=== PATIENT | female | born 1980 | race Caucasian/White ===

== ENCOUNTER 2016-07-02 22:20 | Emergency (ER) | END 2016-07-03 03:54 | disposition home or self-care (01) | DX: N12 Tubulo-interstitial nephritis, not specified as acute or chronic (principal); R11.10 Vomiting, unspecified | CPT/HCPCS: 74176; 80053; 81001; 81003; 83690; 85025; J0696; Z7610 ==

== ENCOUNTER 2016-09-25 10:46 | Emergency (ER) | payer OTHER ==
[~2016-09-25] VITALS: Ht 157.5 cm; Wt 64.5 kg
[~2016-09-25 10:46] MED LIST: AUG875 PO; CIPR500T4 PO; HYDR-3498 PO; HYDR-906 PO; IBUP-1542 PO; ONDA4TAB14 PO; ONDA4TAB35 PO; PHEN-538 PO; PSEU120T11 PO
[2016-09-25 11:01] VITALS: Ht 157.5 cm; Wt 64.5 kg
--- NOTE | 2016-09-25 13:09 | ERA ---
ER Documentation Chief Complaint Date/Time DATE: 09/25/16 TIME: 13:08 Chief Complaint EPIGASTRIC PAIN,NAUSEA AND VOMITING HPI Patient is a 35-year-old female who presents with 2 weeks of abdominal pain. Patient has not taken any medication to make symptoms better. Patient describes the abdominal pain as general and more predominant in the lower abdomen/pelvis area. Patient denies sexual activity. Patient has been vomiting for the past 3-4 days. Patient denies diarrhea, constipation, dysuria , hematuria, headache, stiff neck, anorexia, nasal congestion or fever. ROS All systems reviewed and are negative except as per history of present illness. Medications Home Meds Active Scripts Ondansetron (Ondansetron Odt) 4 Mg Tab.rapdis, 4 MG PO Q6H Y for NAUSEA AND/OR VOMITING, #10 TAB Prov:YAMILET SHEPHERD PA-C 09/25/16 Phenazopyridine Hcl* (Pyridium*) 200 Mg Tab, 200 MG PO TID Y for URINARY PAIN, # 6 TAB Prov:DRISS QUINTANA NP 07/03/16 Ondansetron (Ondansetron Odt) 4 Mg Tab.rapdis, 4 MG PO Q8 Y for NAUSEA AND/OR VOMITING, #30 TAB Prov:DRISS QUINTANA NP 07/03/16 Hydrocodone/Acetaminophen ([place] 5-325 Tablet) 1 Each Tablet, 1 TAB PO Q6H Y for PAIN, #20 TAB Prov:DRISS QUINTANA NP 07/03/16 Ciprofloxacin Hcl* (Ciprofloxacin Hcl*) 500 Mg Tablet, 500 MG PO BID for 10 Days , TAB Prov:DRISS QUINTANA NP 07/03/16 Ibuprofen* (Motrin*) 600 Mg Tab, 600 MG PO Q6, #30 TAB Prov:LIANNE PERDOMO PA-C 01/11/16 Ondansetron Hcl* (Zofran* ODT) 4 mg -ODT Tab.disper, 4 MG PO Q8 Y for NAUSEA AND /OR VOMITING, #30 TAB Prov:DRISS QUINTANA NP 11/20/15 Hydrocodone Bit-Acetaminophen* ([place]*) 5-325 Mg Tab, 1 TAB PO Q6 Y for PAIN, # 20 TAB Prov:DRISS QUINTANA NP 11/20/15 Pseudoephedrine Hcl (Sudafe 12-Hour) 120 Mg Tablet.er, 120 MG PO BID Y for CONGESTION for 3 Days, TAB.SA Prov:LIANNE PERDOMO PA-C 07/18/15 Amoxicillin-Clavulanate K* (Augmentin*) 875 Mg Tab, 875 MG PO BID for 7 Days, TAB Prov:LIANNE PERDOMO PA-C 07/18/15 Reported Medications [none] Unknown Strength No Conflict Check 11/20/15 Allergies Allergies: Coded Allergies: No Known Drug Allergies (Verified Allergy, Mild, 07/03/16) PMhx/Soc History of Surgery: Yes (C SECTION w/ tubal ligation) Anesthesia Reaction: No Hx Neurological Disorder: No Hx Respiratory Disorders: No Hx Cardiac Disorders: No Hx Psychiatric Problems: No Hx Miscellaneous Medical Probl: No Hx Alcohol Use: Yes (OCCASSIONAL) Hx Substance Use: No Hx Tobacco Use: No Smoking Status: Never smoker Physical Exam Vitals Vital Signs Date Time Temp Pulse Resp B/P Pulse Ox O2 Delivery O2 Flow Rate FiO2 09/25/16 11:01 98.3 69 18 112/70 98 Physical Exam Const: Well-appearing overweight 35-year-old female Head: Atraumatic Eyes: Normal Conjunctiva ENT: Normal External Ears, Nose and Mouth. Neck: Full range of motion..~ No meningismus. Resp: Clear to auscultation bilaterally Cardio: Regular rate and rhythm, no murmurs Abd: Soft, non tender, non distended. Normal bowel sounds. No suprapubic tenderness. Skin: No petechiae or rashes Back: No midline or flank tenderness Ext: No cyanosis, or edema Neur: Awake and alert Psych: Normal Mood and Affect Results 24 hrs Laboratory Tests Test 09/25/16 13:44 Bedside Urine pH (LAB) 5.5 Bedside Urine Protein (LAB) Negative Bedside Urine Glucose (UA) Negative Bedside Urine Ketones (LAB) Negative Bedside Urine Blood 3+ Bedside Urine Nitrite (LAB) Negative Bedside Urine Leukocyte Esterase (L Negative Procedures/MDM Patient is a 35-year-old female complaining of generalized abdominal pain for the past 2 weeks and vomiting for the past 3 days with pain being more predominant in the lower abdomen/pelvic region. Patient denies fever, constipation or diarrhea. At this time we will go ahead and get a in the urine to make sure there is urinary tract infection or . Patient is able to tolerate p.o. Patient's urinalysis was unremarkable and test was negative. We will go ahead and discharge the patient with a prescription for Zofran to control the nausea vomiting and return precautions. Have instructed the patient has symptoms persist to return to the emergency department immediately. Otherwise patient should follow-up with primary care provider in the next 1-3 days. Departure Diagnosis: Primary Impression: Gastroenteritis Additional Impressions: Stomach ache Vomiting Qualified Code: R11.2 - Nausea and vomiting, intractability of vomiting not specified, unspecified vomiting type Condition: Serious Additional Instructions: Follow up with your PCP within the next 1-3 days for a more thorough evaluation and a possible referral to a specialist. Return the the emergency department immediately if symptoms worsen or change. If you have any questions regarding medications, ask your pharmacist or us before you leave. If any adverse reactions occur while taking your medications, discontinue the treatment and return to the emergency department immediately. Take your medications as directed, and complete the entire course of treatment. YAMILET SHEPHERD PA-C Sep 25, 2016 13:09
[2016-09-25 13:43] LABS: URINE BLOOD (Dip) POC 3+ (NEGATIVE)
[2016-09-25] MEDS ORDERED: ONDA4TAB14 PO (13:49)
[2016-09-25 14:10] VITALS: BP 109/75; PULSE 66; RESP 18; TEMP 98.5
== END 2016-09-25 14:12 | disposition home or self-care (01) ==
LOC: FTE 10:46
DX: K52.9 Noninfective gastroenteritis and colitis, unspecified (principal); R11.2 Nausea with vomiting, unspecified
CPT/HCPCS: 81003; 99283

== ENCOUNTER 2016-10-01 22:52 | Emergency (ER) | payer OTHER ==
[~2016-10-01] VITALS: Ht 162.6 cm; Wt 65.0 kg
[2016-10-01 22:55] VITALS: Ht 162.6 cm; Wt 65.0 kg
[2016-10-02] MEDS ORDERED: morphine 4 MG/ML VIAL IV STA (01:33)
[2016-10-02] MEDS ORDERED: ONDANSETRON 4 MG INJ IV STA (01:33)
[2016-10-02 01:54] LABS: ADD SCAN DIFF NO
[2016-10-02 02:03] LABS: BASOPHILS % 0.4 % (0.0-2.0); EOSINOPHILS # 0.1 10^3/ul (0.0-0.5); EOSINOPHILS % 0.9 % (0.0-7.0); HEMATOCRIT 39.9 % (37.0-47.0); HEMOGLOBIN 13.5 g/dl (12.0-16.0); LYMPHOCYTES # 3.7 10^3/ul (0.8-2.9); LYMPHOCYTES % 48.3 % (15.0-51.0); MEAN CORPUSCULAR HEMOGLOBIN 29.6 pg (29.0-33.0); MEAN CORPUSCULAR HGB CONC 33.8 g/dl (32.0-37.0); MEAN CORPUSCULAR VOLUME 87.5 fl (82.0-101.0); MEAN PLATELET VOLUME 12.1 fl (7.4-10.4); MONOCYTE # 0.5 10^3/ul (0.3-0.9); MONOCYTES % 7.1 % (0.0-11.0); NEUTROPHIL # 3.3 10^3/ul (1.6-7.5); PLATELET COUNT 224 10^3/UL (140-415); RED BLOOD COUNT 4.56 10^6/ul (4.20-5.40); RED CELL DISTRIBUTION WIDTH 13.2 % (11.5-14.5); WHITE BLOOD COUNT 7.6 10^3/ul (4.8-10.8)
[2016-10-02 02:05] LABS: ALBUMIN 4.9 g/dl (3.3-4.9)
[2016-10-02 02:07] LABS: CREATININE 0.71 mg/dl (0.44-1.00)
[2016-10-02 02:08] LABS: ALBUMIN/GLOBULIN RATIO 1.22; BILIRUBIN,INDIRECT 0.3 mg/dl (0-1.1); BILIRUBIN,TOTAL 0.3 mg/dl (0.2-1.3); TOTAL PROTEIN 8.9 g/dl (6.1-8.1)
[2016-10-02 02:09] LABS: CALCIUM 9.9 mg/dl (8.4-10.2)
[2016-10-02 02:25] LABS: ADD UMIC NO; URINE BILIRUBIN (Dip) NEGATIVE (NEGATIVE); URINE BLOOD (Dip) NEGATIVE (NEGATIVE); URINE COLOR LT. YELLOW (YELLOW); URINE GLUCOSE (Dip) NEGATIVE (NEGATIVE); URINE KETONES (Dip) 40 (NEGATIVE); URINE LEUKOCYTE ESTERASE (Dip) NEGATIVE (NEGATIVE); URINE NITRITE (Dip) NEGATIVE (NEGATIVE); URINE TOTAL PROTEIN (Dip) NEGATIVE (NEGATIVE); URINE UROBILINOGEN (Dip) 0.2 E.U./dL (0.1-1.0)
--- NOTE | 2016-10-02 02:54 | RADRPT ---
PROCEDURE: US pelvis complete and transvaginal CLINICAL INDICATION: Pelvic pain TECHNIQUE: Avalos scale and color Doppler imaging of the pelvis was performed. Endovaginal scanning was performed for more detailed evaluation of the endometrium. The images were reviewed on a PACS workstation. COMPARISON: CT from 07/03/2016 and ultrasound from 01/11/2016 FINDINGS: The uterus measures 7.4 x 4.2 x 5.2 centimeters. The right ovary measures 3.7 x 2.7 x 2.4 centimete rs and the left ovary measures 2.8 x 1.4 x 1.9 centimeters. The endometrial stripe measures 6 catrachita meters in thickness and is unremarkable in appearance. The uterus is slightly heterogeneous in echot exture and slightly globular in contour. This may reflect small fibroid or possibly adenomyosis. 2. 3 cm simple - appearing right ovarian cyst is seen. The left ovary is unremarkable appearance. Cj ss collar and arterial Doppler flow both ovaries was documented. No free fluid is seen. IMPRESSION: 2.3 cm simple appearing right ovarian cyst. Slightly heterogeneous myometrium with slight globular contour of the fundus. This may be incidental or could be due to small fibroids or adenomyosis. RPTAT: HLBE Physician Elizabeth Date Time Electronically viewed and signed by Physician Elizabeth on 10/02/2016 02:53 LE/
[2016-10-02 03:14] LABS: POTASSIUM 2.9 mmol/L (3.5-5.1)
[2016-10-02] MEDS ORDERED: POTASSIUM CHLORIDE (SR) 20 MEQ TAB PO STA (03:27)
--- NOTE | 2016-10-02 03:37 | ERD ---
ER Documentation Chief Complaint Date/Time DATE: 10/02/16 TIME: 03:30 Chief Complaint LOWER MID AP X2 DAYS DENIES N/V DIARRHEA. HPI Otherwise healthy 35-year-old female presents to the emergency department complaining of 1 month history of lower abdominal pain and pelvic pain. Patient denies any vomiting, diarrhea but notes nausea. Patient currently rates her pain at an intermittent 7 out of 10 cramping lower abdominal and pelvic pain. Last menstrual period was 7 days ago and normal for her. Last bowel movement was today and normal for her. ROS All systems reviewed and are negative except as per history of present illness. Medications Home Meds Active Scripts Ondansetron (Ondansetron Odt) 4 Mg Tab.rapdis, 4 MG PO Q6H Y for NAUSEA AND/OR VOMITING, #10 TAB Prov:MERLIN ANAND PA-C 10/02/16 Ibuprofen* (Motrin*) 600 Mg Tab, 600 MG PO Q6, #30 TAB Prov:MERLIN ANAND PA-C 10/02/16 Hydrocodone/Acetaminophen ([place] 5-325 Tablet) 1 Each Tablet, 1 TAB PO Q6H Y for PAIN, #7 TAB Prov:MERLIN ANAND PA-C 10/02/16 Ondansetron (Ondansetron Odt) 4 Mg Tab.rapdis, 4 MG PO Q6H Y for NAUSEA AND/OR VOMITING, #10 TAB Prov:YAMILET SHEPHERD PA-C 09/25/16 Phenazopyridine Hcl* (Pyridium*) 200 Mg Tab, 200 MG PO TID Y for URINARY PAIN, # 6 TAB Prov:DRISS QUINTANA NP 07/03/16 Ondansetron (Ondansetron Odt) 4 Mg Tab.rapdis, 4 MG PO Q8 Y for NAUSEA AND/OR VOMITING, #30 TAB Prov:DRISS QUINTANA NP 07/03/16 Hydrocodone/Acetaminophen ([place] 5-325 Tablet) 1 Each Tablet, 1 TAB PO Q6H Y for PAIN, #20 TAB Prov:DRISS QUINTANA NP 07/03/16 Ciprofloxacin Hcl* (Ciprofloxacin Hcl*) 500 Mg Tablet, 500 MG PO BID for 10 Days , TAB Prov:DRISS QUINTANA NP 07/03/16 Ibuprofen* (Motrin*) 600 Mg Tab, 600 MG PO Q6, #30 TAB Prov:LIANNE PERDOMO PA-C 01/11/16 Ondansetron Hcl* (Zofran* ODT) 4 mg -ODT Tab.disper, 4 MG PO Q8 Y for NAUSEA AND /OR VOMITING, #30 TAB Prov:DRISS QUINTANA. MANAGER [employer]PORATE RESPONSIBILITY 11/20/15 Hydrocodone Bit-Acetaminophen* ([place]*) 5-325 Mg Tab, 1 TAB PO Q6 Y for PAIN, # 20 TAB Prov:DRISS QUINTANA T. MANAGER [employer]PORATE RESPONSIBILITY 11/20/15 Pseudoephedrine Hcl (Sudafe 12-Hour) 120 Mg Tablet.er, 120 MG PO BID Y for CONGESTION for 3 Days, TAB.SA Prov:LIANNE PERDOMO PA-C 07/18/15 Amoxicillin-Clavulanate K* (Augmentin*) 875 Mg Tab, 875 MG PO BID for 7 Days, TAB Prov:LIANNE PERDOMO PA-C 07/18/15 Reported Medications [none] Unknown Strength No Conflict Check 11/20/15 Allergies Allergies: Coded Allergies: No Known Drug Allergies (Verified Allergy, Mild, 10/01/16) PMhx/Soc Medical and Surgical Hx: pt denies Medical Hx History of Surgery: Yes (C SECTION w/ tubal ligation) Anesthesia Reaction: No Hx Neurological Disorder: No Hx Respiratory Disorders: No Hx Cardiac Disorders: No Hx Psychiatric Problems: No Hx Miscellaneous Medical Probl: No Hx Alcohol Use: Yes (OCCASSIONAL) Hx Substance Use: No Hx Tobacco Use: No Smoking Status: Never smoker Physical Exam Vitals Vital Signs Date Time Temp Pulse Resp B/P Pulse Ox O2 Delivery O2 Flow Rate FiO2 10/02/16 03:44 97.0 68 20 135/78 100 Room Air 10/01/16 22:55 97.0 74 20 121/73 99 Physical Exam Const: [] Head: Atraumatic Eyes: Normal Conjunctiva ENT: Normal External Ears, Nose and Mouth. Neck: Full range of motion..~ No meningismus. Resp: Clear to auscultation bilaterally Cardio: Regular rate and rhythm, no murmurs Abd: Soft, non tender, non distended. Normal bowel sounds Skin: No petechiae or rashes Back: No midline or flank tenderness Ext: No cyanosis, or edema Neur: Awake and alert Psych: Normal Mood and Affect Result Diagram: 10/02/1613410/02/16134 Results 24 hrs Laboratory Tests Test 10/02/16 01:35 White Blood Count 7.610^3/ul Red Blood Count 4.5610^6/ul Hemoglobin 13.5g/dl Hematocrit 39.9% Mean Corpuscular Volume 87.5fl Mean Corpuscular Hemoglobin 29.6pg Mean Corpuscular Hemoglobin Concent 33.8g/dl Red Cell Distribution Width 13.2% Platelet Count 81285^3/UL Mean Platelet Volume 12.1fl Neutrophils % 43.0% Lymphocytes % 48.3% Monocytes % 7.1% Eosinophils % 0.9% Basophils % 0.4% Nucleated Red Blood Cells % 0.0/100WBC Neutrophils # 3.310^3/ul Lymphocytes # 3.710^3/ul Monocytes # 0.510^3/ul Eosinophils # 0.110^3/ul Basophils # 0.010^3/ul Nucleated Red Blood Cells # 0.010^3/ul Urine Color LT. YELLOW Urine Clarity CLEAR Urine pH 6.0 Urine Specific [place] 1.010 Urine Ketones 40 Urine Nitrite NEGATIVE Urine Bilirubin NEGATIVE Urine Urobilinogen 0.2 E.U./dL Urine Leukocyte Esterase NEGATIVE Urine Hemoglobin NEGATIVE Urine Glucose NEGATIVE% Urine Total Protein NEGATIVE Sodium Level 144mmol/L Potassium Level 2.9mmol/L Chloride Level 106mmol/L Carbon Dioxide Level 21mmol/L Anion Gap 20 Blood Urea Nitrogen 10mg/dl Creatinine 0.71mg/dl Glucose Level 89mg/dl Calcium Level 9.9mg/dl Total Bilirubin 0.3mg/dl Direct Bilirubin 0.00mg/dl Indirect Bilirubin 0.3mg/dl Aspartate Amino Transf (AST/SGOT) 22IU/L Alanine Aminotransferase (ALT/SGPT) 29IU/L Alkaline Phosphatase 78IU/L Total Protein 8.9g/dl Albumin 4.9g/dl Globulin 4.00g/dl Albumin/Globulin Ratio 1.22 Lipase 72U/L Current Medications Medications (Trade) Dose Ordered Sig/Randolph Route PRN Reason Start Time Stop Time Status Last Admin Dose Admin Morphine Sulfate (morphine) 4 mg ONCE STAT IV 10/02/16 01:33 4/25/17 01:35 DC 10/02/16 02:11 Ondansetron HCl (Zofran Inj) 4 mg ONCE STAT IV 10/02/16 01:33 10/02/16 01:35 DC 10/02/16 02:09 Potassium Chloride (Klor-Con 20) 40 meq ONCE STAT PO 10/02/16 03:27 10/02/16 03:31 DC 10/02/16 03:36 Procedures/MDM This is a pleasant 35-year-old female who presents with intermittent lower abdominal cramping pain 1 month. Vital signs were reviewed. Patient was afebrile, non-tachycardic, non-hypoxic and normotensive upon arrival. Patient received 1 bolus of fluids as well as pain medication and reports improvement of symptoms. Patient was requesting to eat and drink while in the emergency department. Abdominal exam unremarkable for any severe tenderness to palpation or peritoneal signs. CBC showed no evidence of systemic infection or severe anemia. CMP showed evidence of hypokalemia. Patient was administered 40 mg p.o. potassium while in the emergency department. Otherwise no evidence of other electrolyte abnormalities, severe acidosis, alkalosis, renal failure, or liver disease. Lipase showed no evidence of acute pancreatitis. UA showed no evidence of acute infection or hematuria. Urine test was negative. Ultrasound revealed evidence of simple appearing right ovarian cyst. History and physical consistent with hypokalemia and ovarian cyst. At this time I have low suspicion for acute ectopic , tubo-ovarian abscess, ovarian torsion, bowel obstruction. Based on patient's history of present illness and physical examination the decision was made to discharge. The patient was re-evaluated after ED treatment and stabilizing measures, and symptoms have improved. There is no evidence of life threatening injuries or illnesses at this time. On re-examination, patient resting in no distress, stable vital signs, reports feeling better and safe for discharge with outpatient follow up with PMD in 1-2 days. Patient given return precautions. Departure Diagnosis: Primary Impression: Abdominal pain Abdominal location: lower abdomen, unspecified Qualified Code: R10.30 - Lower abdominal pain Additional Impressions: Ovarian cyst Laterality: right Qualified Code: N83.201 - Cyst of right ovary Hypokalemia MERLIN ANAND PA-C Oct 02, 2016 03:37
[2016-10-02 03:44] VITALS: BP 135/78; PULSE 68; RESP 20; TEMP 97
[2016-10-02] MEDS ORDERED: IBUP-1542 PO (03:57)
[2016-10-02] MEDS ORDERED: HYDR-906 PO (03:57)
[2016-10-02] MEDS ORDERED: ONDA4TAB14 PO (03:57)
== END 2016-10-02 04:03 | disposition home or self-care (01) ==
LOC: FTE 22:52
DX: R10.30 Lower abdominal pain, unspecified (principal); N83.201 Unspecified ovarian cyst, right side; E87.6 Hypokalemia; R11.0 Nausea; R10.2 Pelvic and perineal pain
CPT/HCPCS: 36415; 76830; 76856; 80053; 81003; 83690; 85025; 96374; 96375; J2270; J2405; Z7502; Z7610

== ENCOUNTER 2016-11-21 09:33 | Emergency (ER) | payer OTHER ==
[~2016-11-21] VITALS: Ht 162.6 cm; Wt 62.5 kg
[2016-11-21 09:45] VITALS: Ht 162.6 cm; Wt 62.5 kg
[2016-11-21] MEDS ORDERED: ACETAMINOPHEN 325 MG TAB PO STA (10:33)
[2016-11-21 10:40] LABS: URINE BLOOD (Dip) POC Negative (NEGATIVE)
--- NOTE | 2016-11-21 12:09 | RADRPT ---
PROCEDURE: US Pelvis CLINICAL INDICATION: Pelvic pain. TECHNIQUE: Sonographic evaluation of the pelvis was performed utilizing both transabdominal and tr ansvaginal technique. Curved array transabdominal transducer technique as well as a high frequency endovaginal probe was utilized. Images were reviewed on the high-resolution PACS workstation. COMPARISON: Ultrasound dated 10/02/2016 FINDINGS: The uterus is normal in size, echogenicity, and morphology measuring 8.4 x 3.8 x 5.6 cm in dimension . The uterus is anteverted in normal position. The endometrium is thin and homogeneous measuring 4.4 mm in diameter. The normal trilaminar stripe of the endometrium is preserved. The right ovary measures 2.5 x 1.4 x 1.4 cm in dimension. The left ovary measures 2.8 x 1.8 x 2.3 c m in dimension. The ovaries are symmetric in size, echogenicity, and morphology. Normal Doppler fl ow is demonstrated to both ovaries. There are no adnexal masses. There is no significant free flui d in the pelvis. IMPRESSION: Unremarkable ultrasound of the pelvis. RPTAT: .Virginia Worthington MD, Date Time Electronically viewed and signed by .Virginia Worthington MD, on 11/21/2016 12:09 .[place]/
[2016-11-21] MEDS ORDERED: NAPR-260 PO (12:34)
[2016-11-21] MEDS ORDERED: CYCL-319 PO (12:34)
--- NOTE | 2016-11-21 12:59 | ERD ---
ER Documentation Chief Complaint Date/Time DATE: 11/21/16 TIME: 12:56 Chief Complaint back and pelvic pain x 5 days; nausea HPI This is a 35-year-old female presenting to the emergency department with multiple complaints. Patient complains of lower neck and lumbar back pain for the past 5 days. She states the pain is around moderate in severity increased with movement. In addition patient also complains of pelvic pain, rating it mild to moderate in severity. She denies any trauma, saddle anesthesia, bladder or bowel incontinence. She denies fever, painful or frequent urination , hematuria. Patient admits to having nausea. She denies any vomiting, diarrhea or constipation. She states that her last menstrual period was about a week ago. She denies taking any medications for this ROS All systems reviewed and are negative except as per history of present illness. Medications Home Meds Active Scripts Cyclobenzaprine Hcl* (Cyclobenzaprine Hcl*) 10 Mg Tablet, 10 MG PO TID, #30 TAB Prov:BENY CALDERON PA-C 11/21/16 Naproxen* (Naprosyn*) 500 Mg Tablet, 500 MG PO BID Y for PAIN AND/OR INFLAMMATION, #30 TAB Prov:BENY CALDERON PA-C 11/21/16 Ondansetron (Ondansetron Odt) 4 Mg Tab.rapdis, 4 MG PO Q6H Y for NAUSEA AND/OR VOMITING, #10 TAB Prov:MERLIN ANAND PA-C 10/02/16 Ibuprofen* (Motrin*) 600 Mg Tab, 600 MG PO Q6, #30 TAB Prov:MERLIN ANAND PA-C 10/02/16 Hydrocodone/Acetaminophen ([place] 5-325 Tablet) 1 Each Tablet, 1 TAB PO Q6H Y for PAIN, #7 TAB Prov:MERLIN ANAND PA-C 10/02/16 Ondansetron (Ondansetron Odt) 4 Mg Tab.rapdis, 4 MG PO Q6H Y for NAUSEA AND/OR VOMITING, #10 TAB Prov:YAMILET SHEPHERD PA-C 09/25/16 Phenazopyridine Hcl* (Pyridium*) 200 Mg Tab, 200 MG PO TID Y for URINARY PAIN, # 6 TAB Prov:DRISS QUINTANA NP 07/03/16 Ondansetron (Ondansetron Odt) 4 Mg Tab.rapdis, 4 MG PO Q8 Y for NAUSEA AND/OR VOMITING, #30 TAB Prov:DRISS QUINTANA NP 07/03/16 Hydrocodone/Acetaminophen ([place] 5-325 Tablet) 1 Each Tablet, 1 TAB PO Q6H Y for PAIN, #20 TAB Prov:DRISS QUINTANA NP 07/03/16 Ciprofloxacin Hcl* (Ciprofloxacin Hcl*) 500 Mg Tablet, 500 MG PO BID for 10 Days , TAB Prov:DRISS QUINTANA SELF PAY SPECIALIST 07/03/16 Ibuprofen* (Motrin*) 600 Mg Tab, 600 MG PO Q6, #30 TAB Prov:LIANNE PERDOMO PA-C 01/11/16 Ondansetron Hcl* (Zofran* ODT) 4 mg -ODT Tab.disper, 4 MG PO Q8 Y for NAUSEA AND /OR VOMITING, #30 TAB Prov:DRISS QUINTANA NP 11/20/15 Hydrocodone Bit-Acetaminophen* ([place]*) 5-325 Mg Tab, 1 TAB PO Q6 Y for PAIN, # 20 TAB Prov:DRISS QUINTANA NP 11/20/15 Pseudoephedrine Hcl (Sudafe 12-Hour) 120 Mg Tablet.er, 120 MG PO BID Y for CONGESTION for 3 Days, TAB.SA Prov:LIANNE PERDOMO PA-C 07/18/15 Amoxicillin-Clavulanate K* (Augmentin*) 875 Mg Tab, 875 MG PO BID for 7 Days, TAB Prov:LIANNE PERDOMO PA-C 07/18/15 Reported Medications [none] Unknown Strength No Conflict Check 11/20/15 Allergies Allergies: Coded Allergies: No Known Drug Allergies (Verified Allergy, Mild, 11/21/16) PMhx/Soc History of Surgery: Yes (C SECTION w/ tubal ligation) Anesthesia Reaction: No Hx Neurological Disorder: No Hx Respiratory Disorders: No Hx Cardiac Disorders: No Hx Psychiatric Problems: No Hx Miscellaneous Medical Probl: No Hx Alcohol Use: Yes (OCCASSIONAL) Hx Substance Use: No Hx Tobacco Use: No Smoking Status: Never smoker Physical Exam Vitals Vital Signs Date Time Temp Pulse Resp B/P Pulse Ox O2 Delivery O2 Flow Rate FiO2 11/21/16 09:45 72 18 112/72 100 Physical Exam GENERAL: well-developed/well-nourished, in no apparent distress, non-toxic appearing HENT: NC/AT, moist mucous membranes EYES: Conjunctiva normal NECK: Supple, no lymphadenopathy, tender palpation of trapezius muscles bilaterally PULM: CTA bilaterally, no rales, rhonchi, or wheezing heard CV: Normal S1S2, RRR, good capillary refill GI: Soft, non-distended, tender to palpation suprapubic region Normal bowel sounds, no masses or organomegaly felt on exam No gross peritonitis, no bruits Negative Rovsing, negative Restrepo, negative McBurney's point, Negative CVAT BACK: No masses. No deformities. Nontender part patent spine midline, tender palpation in the thoracic and lumbar region. EXT: No clubbing, cyanosis, or edema NEURO: Alert and Orientated SKIN: Intact, normal turgor PSYCH: Normal mood and mentation Results 24 hrs Laboratory Tests Test 11/21/16 10:43 Bedside Urine pH (LAB) 6.0 Bedside Urine Protein (LAB) 1+ Bedside Urine Glucose (UA) Negative Bedside Urine Ketones (LAB) Negative Bedside Urine Blood Negative Bedside Urine Nitrite (LAB) Negative Bedside Urine Leukocyte Esterase (L Negative Current Medications Medications (Trade) Dose Ordered Sig/Randolph Route PRN Reason Start Time Stop Time Status Last Admin Dose Admin Acetaminophen (Tylenol Tab) 650 mg ONCE STAT PO 11/21/16 10:33 11/21/16 10:35 DC 11/21/16 10:37 Procedures/MDM This is a 35-year-old female presenting to the emergency department complaining of neck, back and pelvic pain for the past 5 days. On examination, patient appears well she has stable vital signs. Patient had mild tenderness to palpation in the pelvic region, she was nontender to palpate in the spine midline. Appears that patient's pain is likely musculoskeletal. There was no evidence of urinary tract infection, pyelonephritis, nephrolithiasis, ovarian torsion or rupture, or other acute abdominal or cardiopulmonary conditions. In the ED patient was given Tylenol and Zofran, I have reassessed her and she states that she feels better. A urinalysis was done did not show any evidence of a urinary tract infection or hemoglobin. Urine test is negative. A pelvic ultrasound was done and the radiologist it was unremarkable. There was no evidence of ovarian torsion or ruptured cyst. I have discussed the patient to follow-up with her primary care physician for further evaluation and management. She stable for discharge for home. She understands and agrees with this plan and knows to return to the ER for any worsening sinus symptoms. Prescriptions given ibuprofen Departure Diagnosis: Primary Impression: Back pain Additional Impression: Pelvic pain Condition: Stable Patient Instructions: Back Pain (Acute Or Chronic), Pelvic Pain, Unknown Cause Additional Instructions: FOLLOW UP WITH YOUR PRIMARY CARE PHYSICIAN TOMORROW.Return to this facility if you are not improving as expected. Take all medicines as directed. Return to this facility if you are not improving as expected. Visite a frederick bettina trejo para un EXAMEN.Regrese a estas instalaciones si no se mejora denisse esperbamos o denisse le dijimos. [place] toda la medicina pal y denisse se le indic. Regrese a estas instalaciones si no se mejora denisse esperbamos o denisse le dijimos. Thank you for for coming to [facility] for your care today. Please ask your nurse or provider if you have questions about your care today and do not leave until all your questions have been answered. Please use any medications given as directed and follow-up with your doctor (or the doctor you were referred to) in the next 2-3 days. If you do not have a primary care doctor you may follow up at the [facility] (listed below). You may also use motrin and tylenol as needed for fever and/or pain unless instructed otherwise by your provider or nurse. Indications for more urgent follow-up have been discussed, but you may return to the Emergency Department at ANY time for any worrisome or worsening symptoms. La medicina que se le recet puede causarle sueo.NO DEBE MANEJAR NI OPERAR MAQUINARIAS PELIGROSAS mientras esta tomando esta medicina! BENY CALDERON PA-C Nov 21, 2016 12:59
== END 2016-11-21 12:45 | disposition home or self-care (01) ==
LOC: FTE 09:33
DX: M54.9 Dorsalgia, unspecified (principal); R10.2 Pelvic and perineal pain
CPT/HCPCS: 76830; 76856; 81003; Z7502; Z7610

== ENCOUNTER 2017-01-17 09:48 | Emergency (ER) | payer OTHER ==
[~2017-01-17] VITALS: Wt 63.0 kg
[~2017-01-17 09:48] MED LIST changes: +CYCL-319 PO; +NAPR-260 PO
[2017-01-17] MEDS ORDERED: KETOROLAC 60 MG INJ IM STA (10:26)
[2017-01-17 10:38] LABS: URINE BLOOD (Dip) POC Negative (NEGATIVE)
--- NOTE | 2017-01-17 11:17 | RADRPT ---
PROCEDURE: XR Lumbar Spine 2 Views. CLINICAL INDICATION: Low back pain. TECHNIQUE: Lumbar spine study including AP and lateral views was performed. COMPARISON: No prior studies are available for comparison. FINDINGS: Lumbar spine demonstrates a normal lordosis. No fractures or destructive bony lesions are observed. Mild intervertebral disk space narrowing is identified at L4-5. The facet joints are grossly unre markable. Soft tissues surrounding the spine appear normal. IMPRESSION: Mild degenerative disk disease at L4-5. If further characterization is needed CT or MRI could be helpful. If there is high clinical suspicion for traumatic injury, further evaluation with CT should be consi dered. RPTAT: AA .Martinez Carpio MD, MD Date Time Electronically viewed and signed by .Martinez Carpio MD, on 01/17/2017 11:17 .P/
[2017-01-17] MEDS ORDERED: IBUP-1542 PO (11:40)
--- NOTE | 2017-01-17 13:02 | ERD ---
ER Documentation Chief Complaint Date/Time DATE: 01/17/17 TIME: 13:00 Chief Complaint LOW BACK PAIN, SEEN HERE BEFORE WITH SAME S/S, DENIES INJURY HPI 36-year-old female patient with no significant past medical history presents to the ED complaining of lumbar pain that radiates to her right lower leg. Describes pain as achy and rates it a 10 out of 10. Reports that it is better when she is sitting. Reports that it is worse when she moves. Denies any flank pain, dysuria, urgency, saddle anesthesia, urine or bowel incontinences, urinary retention, frequency, hematuria. Reports that she did do some heavy lifting, 4 months ago and this exacerbated her pain. ROS All systems reviewed and are negative except as per history of present illness. Medications Home Meds Active Scripts Ibuprofen* (Motrin*) 600 Mg Tab, 600 MG PO Q6, #30 TAB Prov:DAYANARA BHARDWAJ PA-C 01/17/17 Cyclobenzaprine Hcl* (Cyclobenzaprine Hcl*) 10 Mg Tablet, 10 MG PO TID, #30 TAB Prov:BENY CALDERON PA-C 11/21/16 Naproxen* (Naprosyn*) 500 Mg Tablet, 500 MG PO BID Y for PAIN AND/OR INFLAMMATION, #30 TAB Prov:BENY CALDERON PA-C 11/21/16 Ondansetron (Ondansetron Odt) 4 Mg Tab.rapdis, 4 MG PO Q6H Y for NAUSEA AND/OR VOMITING, #10 TAB Prov:MERLIN ANAND PA-C 10/02/16 Ibuprofen* (Motrin*) 600 Mg Tab, 600 MG PO Q6, #30 TAB Prov:MERLIN ANAND PA-C 10/02/16 Hydrocodone/Acetaminophen ([place] 5-325 Tablet) 1 Each Tablet, 1 TAB PO Q6H Y for PAIN, #7 TAB Prov:MERLIN ANAND PA-C 10/02/16 Ondansetron (Ondansetron Odt) 4 Mg Tab.rapdis, 4 MG PO Q6H Y for NAUSEA AND/OR VOMITING, #10 TAB Prov:YAMILET SHEPHERD PA-C 09/25/16 Phenazopyridine Hcl* (Pyridium*) 200 Mg Tab, 200 MG PO TID Y for URINARY PAIN, # 6 TAB Prov:DRISS QUINTANA [employer]LE [employer]SEMBLER 07/03/16 Ondansetron (Ondansetron Odt) 4 Mg Tab.rapdis, 4 MG PO Q8 Y for NAUSEA AND/OR VOMITING, #30 TAB Prov:DRISS QUINTANA [employer] ASSEMBLER 07/03/16 Hydrocodone/Acetaminophen ([place] 5-325 Tablet) 1 Each Tablet, 1 TAB PO Q6H Y for PAIN, #20 TAB Prov:DRISS QUINTANA [employer] ASSEMBLER 07/03/16 Ciprofloxacin Hcl* (Ciprofloxacin Hcl*) 500 Mg Tablet, 500 MG PO BID for 10 Days , TAB Prov:DRISS QUINTANA [employer] ASSEMBLER 07/03/16 Ibuprofen* (Motrin*) 600 Mg Tab, 600 MG PO Q6, #30 TAB Prov:LIANNE PERDOMO PA-C 01/11/16 Ondansetron Hcl* (Zofran* ODT) 4 mg -ODT Tab.disper, 4 MG PO Q8 Y for NAUSEA AND /OR VOMITING, #30 TAB Prov:DRISS QUINTANA NP 11/20/15 Hydrocodone Bit-Acetaminophen* (Maitland*) 5-325 Mg Tab, 1 TAB PO Q6 Y for PAIN, # 20 TAB Prov:DRISS QUINTANA [employer] ASSEMBLER 11/20/15 Pseudoephedrine Hcl (Sudafe 12-Hour) 120 Mg Tablet.er, 120 MG PO BID Y for CONGESTION for 3 Days, TAB.SA Prov:LIANNE PERDOMO PA-C 07/18/15 Amoxicillin-Clavulanate K* (Augmentin*) 875 Mg Tab, 875 MG PO BID for 7 Days, TAB Prov:LIANNE PERDOMO PA-C 07/18/15 Reported Medications [none] Unknown Strength No Conflict Check 11/20/15 Allergies Allergies: Coded Allergies: No Known Drug Allergies (Verified Allergy, Mild, 11/21/16) PMhx/Soc History of Surgery: Yes (C SECTION w/ tubal ligation) Anesthesia Reaction: No Hx Neurological Disorder: No Hx Respiratory Disorders: No Hx Cardiac Disorders: No Hx Psychiatric Problems: Yes (depression) Hx Miscellaneous Medical Probl: No Hx Alcohol Use: Yes (OCCASSIONAL) Hx Substance Use: No Hx Tobacco Use: No Smoking Status: Never smoker Physical Exam Vitals Vital Signs Date Time Temp Pulse Resp B/P Pulse Ox O2 Delivery O2 Flow Rate FiO2 01/17/17 09:52 97.9 71 18 103/64 98 Physical Exam Const: [id number], well-nourished. In no acute distress. Head: Atraumatic, normocephalic Eyes: Normal Conjunctiva without injection. No purulent discharge. ENT: Normal external ear, nose. Moist oropharynx without tonsillar exudates. Non -erythematous pharynx. Uvula midline. No drooling. No trismus. Neck: No cervical midline tenderness. Full range of motion. No meningismus. No cervical lymphadenopathy. No JVD. Resp: Clear to auscultation bilaterally. No wheezing, rhonchi, rales, or crackles. No accessory muscle use. No retractions. Cardio: Regular rate and rhythm. No murmurs, rubs or gallops. Abd: Soft, nontender, non distended. Normal bowel sounds. No palpable masses. No rebound tenderness. No guarding. Negative McBurney's point. Negative psoas sign. Negative obturator sign. Skin: No petechiae or rashes Back: Slight L3-L4 midline tenderness. No CVA tenderness. Full range of motion with rotational movements. Ext: No cyanosis, or edema. Neur: Awake and alert. Normal gait. Normal coordination. Psych: Normal Mood and Affect Results 24 hrs Laboratory Tests Test 01/17/17 10:44 Bedside Urine pH (LAB) 7.0 Bedside Urine Protein (LAB) Negative Bedside Urine Glucose (UA) Negative Bedside Urine Ketones (LAB) Negative Bedside Urine Blood Negative Bedside Urine Nitrite (LAB) Negative Bedside Urine Leukocyte Esterase (L Trace Current Medications Medications (Trade) Dose Ordered Sig/Randolph Route PRN Reason Start Time Stop Time Status Last Admin Dose Admin Ketorolac Tromethamine (Toradol) 60 mg ONCE STAT IM 01/17/17 10:26 01/17/17 10:27 DC 01/17/17 10:40 Procedures/MDM This is a 36-year-old female patient with no significant past medical history presents the ED complaining of lower back pain that radiates to her right lower leg. Patient is afebrile and nontoxic-appearing. Patient has normal vital signs. PROCEDURE: XR Lumbar Spine 2 Views. CLINICAL INDICATION: Low back pain. TECHNIQUE: Lumbar spine study including AP and lateral views was performed. COMPARISON: No prior studies are available for comparison. FINDINGS: Lumbar spine demonstrates a normal lordosis. No fractures or destructive bony lesions are observed. Mild intervertebral disk space narrowing is identified at L4-5. The facet joints are grossly unremarkable. Soft tissues surrounding the spine appear normal. IMPRESSION: Mild degenerative disk disease at L4-5. If further characterization is needed CT or MRI could be helpful. If there is high clinical suspicion for traumatic injury, further evaluation with CT should be considered. Patient likely has symptoms secondary to back pain with sciatica. Patient has mild degenerative disk disease at L4-5. Patient is ambulating here in the ED without difficulty. Denies saddle anesthesia, numbness or tingling, urine or bowel incontinence, weakness. Low suspicion for cauda equina syndrome, cord compression, nephrolithiasis, aortic aneurysm, aortic dissection, epidural abscess, spinal hematoma, malignancy, pyelonephritis, or other emergent conditions. Discharge medications: Ibuprofen Follow up with primary care physician in 1-2 days. Instructed patient to return to the ED sooner for any worsening symptoms. Patient's questions were answered. Patient understood and agreed with discharge plan. Patient discharged stable. Departure Diagnosis: Primary Impression: Back pain Back pain location: back pain in unspecified location Chronicity: unspecified Back pain laterality: right Qualified Code: M54.9 - Right-sided back pain, unspecified back location, unspecified chronicity Condition: Stable Patient Instructions: Back Exercises, Lumbar, Back Pain (Acute Or Chronic), Back Pain W/ Sciatica Referrals: [facility] YOU HAVE RECEIVED A MEDICAL SCREENING EXAM AND THE RESULTS INDICATE THAT YOU DO NOT HAVE A CONDITION THAT REQUIRES URGENT TREATMENT IN THE EMERGENCY DEPARTMENT. FURTHER EVALUATION AND TREATMENT OF YOUR CONDITION CAN WAIT UNTIL YOU ARE SEEN IN YOUR DOCTORS OFFICE WITHIN THE NEXT 1-2 DAYS. IT IS YOUR RESPONSIBILITY TO MAKE AN APPOINTMENT FOR FOLOW-UP CARE. IF YOU HAVE A PRIMARY DOCTOR --you should call your primary doctor and schedule an appointment IF YOU DO NOT HAVE A PRIMARY DOCTOR YOU CAN CALL OUR PHYSICIAN REFERRAL HOTLINE AT IF YOU CAN NOT AFFORD TO SEE A PHYSICIAN YOU CAN CHOSE FROM THE FOLLOWING [facility] [address] [facility]. [facility] [address] [place] [place] [facility] [address] [facility] [address] [facility] [address] [facility]. [facility]. [address] [facility]. [facility] YOU HAVE RECEIVED A MEDICAL SCREENING EXAM AND THE RESULTS INDICATE THAT YOU DO NOT HAVE A CONDITION THAT REQUIRES URGENT TREATMENT IN THE EMERGENCY DEPARTMENT. FURTHER EVALUATION AND TREATMENT OF YOUR CONDITION CAN WAIT UNTIL YOU ARE SEEN IN YOUR DOCTORS OFFICE WITHIN THE NEXT 1-2 DAYS. IT IS YOUR RESPONSIBILITY TO MAKE AN APPOINTMENT FOR FOLOW-UP CARE. IF YOU HAVE A PRIMARY DOCTOR --you should call your primary doctor and schedule and appointment IF YOU DO NOT HAVE A PRIMARY DOCTOR YOU CAN CALL OUR PHYSICIAN REFERRAL HOTLINE AT . IF YOU CAN NOT AFFORD TO SEE A PHYSICIAN YOU CAN CHOSE FROM THE FOLLOWING [facility] INSTITUTIONS: [facility] [address] [place] [address] [facility] [address] [place] [address] [facility] [address] [place] [address] [facility] URGENT [facility]SPECIALTIES Additional Instructions: Call your primary care doctor TOMORROW for an appointment during the next 2-3 days for a referral to physical therapy. See the doctor sooner or return here if your condition worsens before your appointment time. DAYANARA BHARDWAJ PA-C Jan 17, 2017 13:02
== END 2017-01-17 11:48 | disposition home or self-care (01) ==
LOC: FTE 09:48
DX: M54.5 Low back pain (principal)
CPT/HCPCS: 72100; 81003; 96372; J1885; Z7502

== ENCOUNTER 2017-02-05 11:26 | Emergency (ER) | payer OTHER ==
[~2017-02-05] VITALS: Wt 65.9 kg
[2017-02-05] MEDS ORDERED: AMOX1TAB10 PO (13:57)
--- NOTE | 2017-02-05 14:03 | ERA ---
ER Documentation Chief Complaint Date/Time DATE: 02/05/17 TIME: 14:00 Chief Complaint cough, n/v/d, fever HPI 36-year-old female presenting with a chief complaint of cough. Patient was seen by PCP is 5 days ago and diagnosed with pneumonia. Patient was prescribed promethazine DM, and azithromycin. Patient has been taking the promethazine as prescribed but only took 2 days of the azithromycin. Patient states she has 4 pills of these of the right than left. Patient denies fever, sweats, chills, rigors, hemoptysis, breathlessness, dyspnea, chest pain, recent unintentional weight loss, drug use, history of cancer, meningismus, pharyngitis, change in voice. Vaccination status is up to date. Patient has no other complaints and describes no other associated manifestations. Nursing notes have been reviewed and are consistent with history given. ROS All systems reviewed and are negative except as per history of present illness. Medications Home Meds Active Scripts Amoxicillin/Potassium Clav (Amox-Clav 875-125 mg Tablet) 875-125 mg Tab, 1 TAB PO BID for 7 Days, #14 TAB Prov:YAMILET SHEPHERD PA-C 02/05/17 Ibuprofen* (Motrin*) 600 Mg Tab, 600 MG PO Q6, #30 TAB Prov:DAYANARA BHARDWAJ PA-C 01/17/17 Cyclobenzaprine Hcl* (Cyclobenzaprine Hcl*) 10 Mg Tablet, 10 MG PO TID, #30 TAB Prov:BENY CALDERON PA-C 11/21/16 Naproxen* (Naprosyn*) 500 Mg Tablet, 500 MG PO BID Y for PAIN AND/OR INFLAMMATION, #30 TAB Prov:BENY CALDERON PA-C 11/21/16 Ondansetron (Ondansetron Odt) 4 Mg Tab.rapdis, 4 MG PO Q6H Y for NAUSEA AND/OR VOMITING, #10 TAB Prov:MERLIN ANAND PA-C 10/02/16 Ibuprofen* (Motrin*) 600 Mg Tab, 600 MG PO Q6, #30 TAB Prov:MERLIN ANAND PA-C 17 Hydrocodone/Acetaminophen ([place] 5-325 Tablet) 1 Each Tablet, 1 TAB PO Q6H Y for PAIN, #7 TAB Prov:MERLIN ANAND PA-C 10/02/16 Ondansetron (Ondansetron Odt) 4 Mg Tab.rapdis, 4 MG PO Q6H Y for NAUSEA AND/OR VOMITING, #10 TAB Prov:YAMILET SHEPHERD PA-C 09/25/16 Phenazopyridine Hcl* (Pyridium*) 200 Mg Tab, 200 MG PO TID Y for URINARY PAIN, # 6 TAB Prov:DRISS QUINTANA NP 07/03/16 Ondansetron (Ondansetron Odt) 4 Mg Tab.rapdis, 4 MG PO Q8 Y for NAUSEA AND/OR VOMITING, #30 TAB Prov:DRISS QUINTANA [employer] TRUCK [employer]IVER 07/03/16 Hydrocodone/Acetaminophen ([place] 5-325 Tablet) 1 Each Tablet, 1 TAB PO Q6H Y for PAIN, #20 TAB Prov:DRISS QUINTANA NP 07/03/16 Ciprofloxacin Hcl* (Ciprofloxacin Hcl*) 500 Mg Tablet, 500 MG PO BID for 10 Days , TAB Prov:DRISS QUINTANA [employer] TRUCK DRIVER 07/03/16 Ibuprofen* (Motrin*) 600 Mg Tab, 600 MG PO Q6, #30 TAB Prov:LIANNE PERDOMO PA-C 01/11/16 Ondansetron Hcl* (Zofran* ODT) 4 mg -ODT Tab.disper, 4 MG PO Q8 Y for NAUSEA AND /OR VOMITING, #30 TAB Prov:DRISS QUINTANA NP 11/20/15 Hydrocodone Bit-Acetaminophen* (P[place]osky*) 5-325 Mg Tab, 1 TAB PO Q6 Y for PAIN, # 20 TAB Prov:DRISS QUINTANA [employer] TR[employer] DRIVER 11/20/15 Pseudoephedrine Hcl (Sudafe 12-Hour) 120 Mg Tablet.er, 120 MG PO BID Y for CONGESTION for 3 Days, TAB.SA Prov:LIANNE PERDOMO PA-C 07/18/15 Amoxicillin-Clavulanate K* (Augmentin*) 875 Mg Tab, 875 MG PO BID for 7 Days, TAB Prov:ILANNE PERDOMO PA-C 07/18/15 Reported Medications [none] Unknown Strength No Conflict Check 11/20/15 Allergies Allergies: Coded Allergies: No Known Drug Allergies (Verified Allergy, Mild, 11/21/16) PMhx/Soc History of Surgery: Yes (C SECTION w/ tubal ligation) Anesthesia Reaction: No Hx Neurological Disorder: No Hx Respiratory Disorders: No Hx Cardiac Disorders: No Hx Psychiatric Problems: Yes (depression) Hx Miscellaneous Medical Probl: No Hx Alcohol Use: Yes (OCCASSIONAL) Hx Substance Use: No Hx Tobacco Use: No Physical Exam Vitals Vital Signs Date Time Temp Pulse Resp B/P Pulse Ox O2 Delivery O2 Flow Rate FiO2 02/05/17 11:42 98.3 75 20 108/68 99 Physical Exam Const: Overweight 36-year-old female no acute distress Head: Atraumatic Eyes: Normal Conjunctiva ENT: Normal External Ears, Nose and Mouth. Neck: Full range of motion..~ No meningismus. Resp: Clear to auscultation bilaterally. Equal chest expansion bilaterally. Percussion unremarkable. Cardio: Regular rate and rhythm, no murmurs. Radial pulses 2+ bilaterally. Cap refill less than 2 seconds. Abd: Soft, non tender, non distended. Normal bowel sounds. No McBurney's point tenderness Skin: No petechiae or rashes Back: No midline or flank tenderness Ext: No cyanosis, or edema Neur: Awake and alert Psych: Normal Mood and Affect Procedures/MDM 36-year-old female presented with a chief complaint of cough as described in history and physical examination. Was diagnosed with pneumonia by PCP. Given azithromycin but only took 2 days of the treatment. Patient received an x-ray here as she did not receive one by the PCP. X-ray was read by the radiologist and given the following impression: At this time of little suspicion for pneumonia, airway obstruction, ACS, pulmonary embolism, asthma, meningitis, or other serious bacterial illness. No longer have suspicion for endangerment of the airway. I have spoke with the patient regarding their condition and future management. They have verbally responded that they understand their status and treatment plan. The patients vitals are stable, and their current condition is appropriate for discharge. The patient will be given discharge instructions with return precautions. Discharge medications/instructions: Departure Diagnosis: Primary Impression: Cough Condition: Stable Patient Instructions: Pneumonia (Adult) Additional Instructions: Follow up with your PCP within the next 1-3 days for a more thorough evaluation and a possible referral to a specialist. Return the the emergency department immediately if symptoms worsen or change. If you have any questions regarding medications, ask your pharmacist or us before you leave. If any adverse reactions occur while taking your medications, discontinue the treatment and return to the emergency department immediately. Take your medications as directed, and complete the entire course of treatment. Continue azithromycin treatment. YAMILET SHEPHERD PA-C Feb 05, 2017 14:03
--- NOTE | 2017-02-05 14:50 | RADRPT ---
PROCEDURE: Chest x-ray CLINICAL INDICATION: Cough TECHNIQUE: Chest single view COMPARISON: 06/21/2015 FINDINGS: The heart is normal in size. The pulmonary vessels are normal in caliber. The lungs are clear. Th e costophrenic angles are sharp. The visualized bony thorax is unremarkable. IMPRESSION: No acute cardiopulmonary disease. RPTAT: HH .Eder Evans MD, Date Time Electronically viewed and signed by .Eder Evans MD, on 02/05/2017 14:49 .W/
[2017-02-05 16:47] VITALS: TEMP 98.7
== END 2017-02-05 16:08 | disposition home or self-care (01) ==
LOC: FTE 11:26
DX: R05 Cough (principal)
CPT/HCPCS: 71010; Z7502

== ENCOUNTER 2017-05-13 12:29 | Emergency (ER) | payer SELFPAY ==
[~2017-05-13 12:29] MED LIST changes: +AMOX1TAB10 PO
== END 2017-05-13 13:31 | disposition left against medical advice (07) ==
LOC: E/R 12:29
DX: Z53.21 Procedure and treatment not carried out due to patient leaving prior to being seen by health care provider (principal)

== ENCOUNTER 2017-06-12 09:08 | Emergency (ER) | END 2017-06-12 10:25 | disposition home or self-care (01) ==

== ENCOUNTER 2017-10-08 05:30 | Emergency (ER) | END 2017-10-08 08:41 | disposition home or self-care (01) ==

== ENCOUNTER 2018-05-29 03:47 | Emergency (ER) | END 2018-05-29 04:52 | disposition home or self-care (01) ==

== ENCOUNTER 2019-01-07 10:34 | Emergency (ER) | payer OTHER ==
[~2019-01-07] VITALS: Ht 162.6 cm; Wt 71.4 kg
[~2019-01-07 10:34] MED LIST changes: +ALBU8.5H8 INH; +AZIT250T PO; +BENZ-6 PO; -CYCL-319 PO; +CYCL10TA7 PO; +GUAI-173 PO; +HYDR-4011 PO; -HYDR-906 PO; +IBUP800T48 PO; +MED4DP PO; -NAPR-260 PO; +NAPR-985 PO; +ONDA4TAB13 PO; +ONDA4TAB8 PO; +OSEL75CA23 PO; +PRED20TA PO; +TYL500 PO
[2019-01-07 10:41] VITALS: BP 96/67; PULSE 82; RESP 20; Ht 162.6 cm; Wt 71.4 kg
[2019-01-07] MEDS ORDERED: KETOROLAC 60 MG INJ IM STA (11:14)
--- NOTE | 2019-01-07 13:51 | ERD ---
ER Documentation Chief Complaint Chief Complaint back pain x 2 weeks HPI 38-year-old female presenting with back pain x2 weeks. Patient also complaining of lower pelvic pain. She states her back pain is worse with movement and denies any falls or injuries. She denies any changes in urination or bowel movement. She took Advil with no alleviation. She states the pain comes and goes. Denies medical problems. NKDA. Surgical history denies. Social history denies ROS All systems reviewed and are negative except as per history of present illness. Medications Home Meds Active Scripts Methylprednisolone* (Medrol* DOSE PACK) 4 Mg/Dose-Pack Tab.ds.pk, 4 MG PO . DIRECTED, #1 PACKET Prov:NELSON LOERA PA-C 01/07/19 Cyclobenzaprine Hcl* (Cyclobenzaprine Hcl*) 10 Mg Tablet, 10 MG PO TID, #15 TAB Prov:NELSON LOERA PA-C 01/07/19 Hydrocodone/Acetaminophen ([place] 5-325 Tablet) 1 Each Tablet, 1 TAB PO Q6H PRN for PAIN, #7 TAB Prov:NELSON LOERA PA-C 01/07/19 Naproxen* (Naprosyn*) 500 Mg Tablet, 500 MG PO BID PRN for PAIN AND/OR INFLAMMATION, #30 TAB Prov:NELSON LOERA PA-C 01/07/19 Ondansetron Hcl* (Zofran*) 4 Mg Tablet, 4 MG PO Q8H PRN for NAUSEA AND/OR VOMIT ING, #30 TAB Prov:NICOLAS VALENTINO 05/29/18 Prednisone* (Prednisone*) 20 Mg Tab, 40 MG PO DAILY for 4 Days, TAB Prov:NICLOAS VALENTINO 05/29/18 Benzonatate* (Tessalon Perle*) 100 Mg Capsule, 100 MG PO Q8H PRN for COUGH, #15 CAP Prov:NICOLAS VALENTINO 05/29/18 Ibuprofen* (Motrin*) 800 Mg Tab, 800 MG PO Q6H PRN for PAIN AND OR ELEVATED TEMP, #30 TAB Prov:NICOLAS VALENTINO 05/29/18 Albuterol Sulfate* (Proair HFA*) 8.5 Gm Hfa.aer.ad, 2 PUFF INH Q4H PRN for WHEEZING AND SOB, #1 INHALER Prov:NICOLAS VALENTINO 05/29/18 Azithromycin* (Zithromax*) 250 Mg Tablet, 250 MG PO .ZPACK DIRECTED, #6 TAB TAKE 500 MG (2 TABS) THE FIRST DAY THEN 250 MG (1 TAB) DAYS 2-5 Prov:NICOLAS VALENTINO 05/29/18 Amoxicillin/Potassium Clav (Amox-Clav 875-125 mg Tablet) 875-125 mg Tab, 1 TAB PO BID for 10 Days, #20 TAB Prov:NICOLAS VALENTINO 05/29/18 Ondansetron Hcl* (Zofran*) 4 Mg Tablet, 4 MG PO Q6H for NAUSEA AND/OR VOMITING, #30 TAB Prov:BEN DE JESUS PA-C 10/08/17 Guaifenesin* (Tussin*) 100 Mg/5 Ml Syrup, 200 MG PO Q6 PRN for COUGH, #120 ML Prov:CANDELARIA POWELL 06/12/17 Acetaminophen* (Tylenol*) 500 Mg Tab, 500 MG PO Q4H PRN for MILD PAIN LEVEL 1-3, #15 TAB Prov:CANDELARIA PWOELL 06/12/17 Ondansetron Hcl* (Zofran*) 4 Mg Tab, 4 MG PO Q4H PRN for NAUSEA AND OR VOMITING, #10 TAB Prov:CANDELARIA POWELL 06/12/17 Oseltamivir Phosphate* (Tamiflu*) 75 Mg Capsule, 75 MG PO BID for 5 Days, CAP Prov:CANDELARIA POWELL 06/12/17 Azithromycin* (Zithromax*) 250 Mg Tablet, 250 MG PO .ZPACK DIRECTED, #6 TAB TAKE 500 MG (2 TABS) THE FIRST DAY THEN 250 MG (1 TAB) DAYS 2-5 Prov:CANDELARIA POWELL 06/12/17 Amoxicillin/Potassium Clav (Amox-Clav 875-125 mg Tablet) 875-125 mg Tab, 1 TAB PO BID for 7 Days, #14 TAB Prov:YAMILET SHEPHERD PA-C 02/05/17 Ibuprofen* (Motrin*) 600 Mg Tab, 600 MG PO Q6, #30 TAB Prov:DAYANARA BHARDWAJ PA-C 01/17/17 Cyclobenzaprine Hcl* (Cyclobenzaprine Hcl*) 10 Mg Tablet, 10 MG PO TID, #30 TAB Prov:BENY CALDERON PA-C 11/21/16 Naproxen* (Naprosyn*) 500 Mg Tablet, 500 MG PO BID PRN for PAIN AND/OR INFLAMMATION, #30 TAB Prov:BENY CALDERON PA-C 11/21/16 Ondansetron (Ondansetron Odt) 4 Mg Tab.rapdis, 4 MG PO Q6H PRN for NAUSEA AND/OR VOMITING, #10 TAB Prov:MERLIN ANAND PA-C 10/02/16 Ibuprofen* (Motrin*) 600 Mg Tab, 600 MG PO Q6, #30 TAB Prov:MERLIN ANAND PA-C 10/02/16 Hydrocodone/Acetaminophen ([place] 5-325 Tablet) 1 Each Tablet, 1 TAB PO Q6H PRN for PAIN, #7 TAB Prov:MERLIN ANAND PA-C 10/02/16 Ondansetron (Ondansetron Odt) 4 Mg Tab.rapdis, 4 MG PO Q6H PRN for NAUSEA AND/OR VOMITING, #10 TAB Prov:YAMILET SHEPHERD PA-C 09/25/16 Phenazopyridine Hcl* (Pyridium*) 200 Mg Tab, 200 MG PO TID PRN for URINARY PAIN, #6 TAB Prov:DRISS QUINTANA NP 07/03/16 Ondansetron (Ondansetron Odt) 4 Mg Tab.rapdis, 4 MG PO Q8 PRN for NAUSEA AND/OR VOMITING, #30 TAB Prov:DRISS QUINTANA NP 07/03/16 Hydrocodone/Acetaminophen ([place] 5-325 Tablet) 1 Each Tablet, 1 TAB PO Q6H PRN for PAIN, #20 TAB Prov:DRISS QUINTANA NP 07/03/16 Ciprofloxacin Hcl* (Ciprofloxacin Hcl*) 500 Mg Tablet, 500 MG PO BID for 10 Days, TAB Prov:DRISS QUINTANA NP 07/03/16 Ibuprofen* (Motrin*) 600 Mg Tab, 600 MG PO Q6, #30 TAB Prov:LIANNE PERDOMO PA-C 01/11/16 Ondansetron Hcl* (Zofran* ODT) 4 mg -ODT Tab.disper, 4 MG PO Q8 PRN for NAUSEA AND/OR VOMITING, #30 TAB Prov:DRISS QUINTANA NP 11/20/15 Hydrocodone Bit-Acetaminophen* ([place]*) 5-325 Mg Tab, 1 TAB PO Q6 PRN for PAIN, #20 TAB Prov:DRISS QUINTANA KALSOMINER 11/20/15 Pseudoephedrine Hcl (Sudafe 12-Hour) 120 Mg Tablet.er, 120 MG PO BID PRN for CONGESTION for 3 Days, TAB.SA Prov:LIANNE PERDOMO PA-C 07/18/15 Amoxicillin-Clavulanate K* (Augmentin*) 875 Mg Tab, 875 MG PO BID for 7 Days, TAB Prov:LIANNE PERDOMO PA-C 07/18/15 Reported Medications [none] Unknown Strength No Conflict Check 11/20/15 Allergies Allergies: Coded Allergies: No Known Drug Allergies (Verified Allergy, Mild, 11/21/16) PMhx/Soc History of Surgery: Yes (C SECTION w/ tubal ligation) Anesthesia Reaction: No Hx Neurological Disorder: No Hx Respiratory Disorders: No Hx Cardiac Disorders: No Hx Psychiatric Problems: Yes (depression) Hx Miscellaneous Medical Probl: No Hx Alcohol Use: Yes (OCCASSIONAL) Hx Substance Use: No Hx Tobacco Use: No Smoking Status: Never smoker FmHx Family History: No diabetes, No coronary disease, No other Physical Exam Vitals Vital Signs Date Temp Pulse Resp B/P (MAP) Pulse Ox O2 O2 Flow FiO2 Time Delivery Rate 01/07/19 97.4 82 20 96/67 (77) 99 10:41 Physical Exam GENERAL: The patient is well-appearing, well-nourished, in no acute distress CHEST: Clear to auscultation bilaterally. There are no rales, wheezes or rhonchi. HEART: Regular rate and rhythm. No murmurs, clicks, rubs or gallops. ABDOMEN:Soft, nontender and nondistended. Good bowel sounds. No rebound or guarding. No gross peritonitis. No gross organomegaly or masses. BACK: No midline or flank tenderness. EXTREMITIES: Equal pulses bilaterally. There is no peripheral clubbing, cyanosis or edema. No focal swelling or erythema. Full range of motion. Grossly neurovascularly intact. NEUROLOGIC: Alert and oriented. Cranial nerves II through XII intact. Motor strength in all 4 extremities with 5 out of 5 strength. Sensation grossly intact. Normal speech and gait. Results 24 hrs Laboratory Tests Test 01/07/19 11:30 Bedside Urine pH (LAB) 6.5 Bedside Urine Protein (LAB) Negative Bedside Urine Glucose (UA) Negative Bedside Urine Ketones (LAB) Negative Bedside Urine Blood Negative Bedside Urine Nitrite (LAB) Negative Bedside Urine Leukocyte Esterase (L Negative POC Beta HCG, Qualitative NEGATIVE Current Medications Medications Dose Sig/Randolph Start Time Status Last (Trade) Ordered Route PRN Stop Time Admin Dose Reason Admin Ketorolac 60 mg ONCE STAT 01/07/19 DC 01/07/19 Tromethamine IM 11:14 11:36 (Toradol) 01/07/19 11:15 Procedures/MDM DIAGNOSTIC IMAGING REPORT Patient: TOMMIE TIPTON : 1980 Age: 38 Sex: F MR #: [id number] DOS: 01/07/19 1114 Ordering MD: DANITZA LOERA PA-C Location: [facility] Room/Bed: PROCEDURE: US Pelvis. CLINICAL INDICATION: Pelvic pain TECHNIQUE: Multiple sonographic images of the pelvis were obtained utilizing a transabdominal and endovaginal technique. The images were reviewed on a PACS workstation. COMPARISON: None. FINDINGS: The uterus is visualized and measures 9.3 x 4.7 x 5.1 cm. The endometrial echo complex is mildly thickened and measures 1.1 cm. There is no evidence for free fluid. The right ovary has a normal echotexture and measures 3.5 x 2.1 cm . The left ovary has a normal echotexture and measures 2.5 x 1.5 x 2.1 cm. A 2.0 cm cyst with septation is noted within right ovary. Positive flow is noted within both ovaries. No adnexal masses are noted. IMPRESSION: 1. Mildly thickened endometrial stripe, likely physiologic within normal limits. 2. Septated 2.0 cm right ovarian cyst. Otherwise both ovaries are within normal limits without evidence of torsion. No gross adnexal masses. No significant free fluid.. ER Course: urinalysis negative MDM: 38-year-old female presenting with back pain. Patient's back pain is likely muscular skeletal. Patient has ovarian cyst noted on ultrasound however no torsion noted. Patient is discharged with supportive medications. I have low suspicion for other acute abdominal emergency. I have low suspicion for urinary tract infection. I have low suspicion for stones. Patient is discharged with strict ER precautions and told to follow-up with primary care within 1 to 2 days for close evaluation. All questions answered at discharge Departure Diagnosis: Primary Impression: Back pain Additional Impression: Ovarian cyst Condition: Stable Patient Instructions: Back Pain (Acute Or Chronic), Ovarian Cyst Referrals: [facility] YOU HAVE RECEIVED A MEDICAL SCREENING EXAM AND THE RESULTS INDICATE THAT YOU DO NOT HAVE A CONDITION THAT REQUIRES URGENT TREATMENT IN THE EMERGENCY DEPARTMENT. FURTHER EVALUATION AND TREATMENT OF YOUR CONDITION CAN WAIT UNTIL YOU ARE SEEN IN YOUR DOCTORS OFFICE WITHIN THE NEXT 1-2 DAYS. IT IS YOUR RESPONSIBILITY TO MAKE AN APPOINTMENT FOR FOLOW-UP CARE. IF YOU HAVE A PRIMARY DOCTOR --you should call your primary doctor and schedule an appointment IF YOU DO NOT HAVE A PRIMARY DOCTOR YOU CAN CALL OUR PHYSICIAN REFERRAL HOTLINE AT IF YOU CAN NOT AFFORD TO SEE A PHYSICIAN YOU CAN CHOSE FROM THE FOLLOWING [facility] [address] [facility]. [facility] [address] [facility] [facility] [address] [facility] [facility] [address] [facility]. [facility] [address] [facility] [facility]. [address] [place] RDCarine JEFFERY Additional Instructions: FOLLOW UP WITH YOUR PRIMARY CARE PHYSICIAN TOMORROW.Return to this facility if you are not improving as expected. NELSON LOERA PA-C Jan 07, 2019 13:51
== END 2019-01-07 13:56 | disposition home or self-care (01) ==
LOC: FTE 10:34
DX: M54.9 Dorsalgia, unspecified (principal); N83.201 Unspecified ovarian cyst, right side
CPT/HCPCS: 76830; 76856; 81003; 81025; 96372; J1885; Z7502